=== PATIENT | male | born 1970 | race American Indian/Alaskan Native ===

== ENCOUNTER 2020-02-03 08:17 | Day surgery (SDC) | payer OTHER, SELFPAY ==
[2020-01-27 15:29] VITALS: BMI 28.1
--- NOTE | 2020-02-01 15:08 | HO.ANESPROP2 ---
Documented by User: Priscilla Luke 02/01/20 15:08 HPI - Anesthesia Eval Consult details Narrative: 49yo M for Colonoscopy [facility] Past Medical History Medical History No significant past medical history Surgical History Surgical History No significant past surgical history Social History Social History Smoking Status: Unknown if ever smoked Use of substances other than those prescribed or required for medical reasons: No Advance Directives: No Advance Directives Information Provided: No Advance Directives on File: No Meds Allergies Allergy/AdvReac Type Severity Reaction Status Date / Time No Known Allergies Allergy Verified 01/27/20 15:28 Home Medications Medication Instructions Recorded Confirmed Type multivitamin 1 tab PO DAILY 01/27/20 01/27/20 History Exam Exam Date and Time: February 01, 2020 1508 Height,Weight and Vital Signs: Height 5 ft 5 in Weight 76.657 kg Assessment and Plan Assessment Anesthesia Assessment: Chart Reviewed Documented by User: Leah Meier 02/03/20 09:17 [facility] Past Medical History Medical History No significant past medical history Surgical History Surgical History No significant past surgical history Social History Social History Smoking Status: Unknown if ever smoked Use of substances other than those prescribed or required for medical reasons: No Advance Directives: No Advance Directives Information Provided: No Advance Directives on File: No Meds Allergies Allergy/AdvReac Type Severity Reaction Status Date / Time No Known Allergies Allergy Verified 01/27/20 15:28 Home Medications Medication Instructions Recorded Confirmed Type multivitamin 1 tab PO DAILY 01/27/20 01/27/20 History Exam Airway Mallampati Class: II TM Dist: >3cm Neck ROM: Full Heart: RRR Lungs: CTA Assessment and Plan Assessment Anesthesia Assessment: Anesthesia Plan Discussed and Chart Reviewed Final Anesthetic Review NPO: Yes ASA Class: I Final Preanesthetic Review: Meds/Allgs Chart Reviewed, Consent Obtained/Reviewed and Anes Risks/Benef Reviewed Patient Risk: Low Procedure Risk: Low Anesthetic Plan Anesthetic Plan: MAC: Disposition: Standard PACU
[2020-02-03 08:46] VITALS: BP 129/89; PULSE 88; RESP 16; TEMP 36.8; O2SAT 98
[2020-02-03] MEDS: Lactated Ringers 1,000 ML 100 ML IVCONT (08:55)
--- NOTE | 2020-02-03 09:16 | P.HPSUR_ITS ---
Pre-Procedural Eval Section B Chief Complaint: screening Details of Present Illness: screening Relevant Family History (Specify if Yes): No Relevant Social History: None Present Medications: None Medical History: No relevant PMH History of Previous Operations: No relevant previous surgery Allergies: Allergies Allergy/AdvReac Type Severity Reaction Status Date / Time No Known Allergies Allergy Verified 01/27/20 15:28 Review of Systems Sugical H&P ROS: Negative: Constitution, Cardiovascular, Respiratory, Neurological, Psychiatric, Hem-Onc, Allergic/Immunologic, Gastrointestinal, Genitourinary, Musculoskeletal, Integumentary, Endocrine and Eyes/Ears/Nose /Throat Exam Surgical H&P Exam: Normal: HEENT, Normal: Heart, Normal: Lungs, Normal: Extremities, Normal: Abdomen, Normal: Skin and Normal: Neurological Plan Diagnosis/Plan: Unchanged Patient has been examined and remains a candidate for the planned procedure
--- NOTE | 2020-02-03 09:36 | PM.OP ---
Brief Operative Note Date of Service: 02/03/20 Pre-op diagnosis: screening Post-op diagnosis: same (colon polyp) Procedure: colonoscopy Surgeon: Armando Baker Anesthesia: MAC Estimated blood loss (mL): 2 Pathology: other (polyp icv) Condition: stable Disposition: PACU
[2020-02-03 09:42] VITALS: BP 98/63; PULSE 93; RESP 16; TEMP 36.7; O2SAT 100
--- NOTE | 2020-02-03 09:55 | OP_ITS ---
SURGEON: Armando Baker MD INDICATIONS: Colon cancer screening. PREOPERATIVE DIAGNOSIS: POSTOPERATIVE DIAGNOSIS: PROCEDURE PERFORMED: ESTIMATED BLOOD LOSS: COMPLICATIONS: ANESTHESIA: Medications, monitored anesthesia care. ASSISTANTS: SPECIMENS: PROCEDURES PERFORMED: Colonoscopy to the terminal ileum with snare polypectomy and biopsy. DESCRIPTION OF PROCEDURE: The history and physical were performed. The risks and benefits of the procedure were explained to the patient. Informed consent was obtained. The patient was placed in the left lateral decubitus position. A digital rectal exam was performed and was found to be normal. The Olympus pediatric video colonoscope was introduced into the rectum and advanced to the cecum without difficulty. The cecum was identified by transillumination, palpation, and identification of the ileocecal valve. Examination was performed. The scope was removed. He tolerated the procedure well and was returned to recovery area in stable condition. FINDINGS: The terminal ileum was normal. The visualized colonic mucosa was normal. The quality of the prep was good. At the ileocecal valve, was a 6-mm polyp which was removed with a combination of snare and biopsy forceps. No other polyps were identified. Retroflexed examination showed moderate-sized internal hemorrhoids. IMPRESSION: Colon polyp. RECOMMENDATION: Followup the biopsy results. MD DASHAWN Rojas/KATINA / [id number]
[2020-02-03 09:57] VITALS: BP 111/85; PULSE 88; RESP 16; O2SAT 99
--- NOTE | 2020-02-03 10:26 | HO.POSTANES ---
Post Anesthesia Evaluation Post Anesthesia Evaluation Vital Signs: Vital Signs Temp Pulse Resp BP Pulse Ox 02/03/20 09:57 88 16 111/85 99 02/03/20 09:42 98.0 F 93 16 98/63 100 02/03/20 08:46 98.2 F 88 16 129/89 98 Anesthesia: Monitored Mental Status: Awake Pain Control: Satisfactory Nausea/Vomiting: None Hydration: Adequate Anesthesia-Related Issues: No Anes. Related Issues
== END 2020-02-03 10:50 | disposition home or self-care (01) ==
PROVIDERS: PCP Internal Medicine; Visit Provider Internal Medicine Gastroenterology
PROC: 0DJD8ZZ Inspection of Lower Intestinal Tract, Via Natural or Artificial Opening Endoscopic (ICD-10-PCS; CPT 45378; principal; 2020-02-03 09:40)
DX: Z12.11 Encounter for screening for malignant neoplasm of colon (principal); D12.0 Benign neoplasm of cecum; K64.8 Other hemorrhoids
CPT/HCPCS: 45385; 45380; 88305

== ENCOUNTER 2020-11-09 08:16 | Outpatient (REF) | payer OTHER, SELFPAY ==
[2020-11-09 08:42] LABS: MANUAL DIFF FLAG NO
[2020-11-09 09:12] LABS: Basophils Percent Auto 0.5 % (0-2); Eosinophils Absolute Auto 0.2 X10*3/uL (0.0-0.4); Eosinophils Percent Auto 3.6 % (0-4); Hematocrit 45.9 % (42-52); Hemoglobin 15.2 g/dl (14.0-18.0); Imm Gran Abs Auto 0.03 X10*3/uL (0.00-0.03); Imm Gran Pct Auto 0.5 % (0.0-0.4); Lymphocytes Absolute Auto 1.7 X10*3/uL (1.2-4.9); Lymphocytes Percent Auto 28.4 % (20-40); Mean Corpuscular HGB Conc 33.1 g/dl (31.0-36.0); Mean Corpuscular Hemoglobin 27.1 pg (27.0-33.0); Mean Platelet Volume 10.9 fL (9.4-12.4); Monocytes Absolute Auto 0.4 X10*3/uL (0.1-1.2); Monocytes Percent Auto 6.3 % (2-11); Neutrophils Absolute Auto 3.6 X10*3/uL (2.0-8.3); Neutrophils Percent Auto 60.7 % (45-73); Platelet Count 175 X10*3/uL (160-400); Red Cell Distribution Width 13.2 % (11.0-16.0); White Blood Count 5.9 X10*3/uL (4.8-10.8)
[2020-11-09 09:21] LABS: Glucose Urine UA NEG (NEG); Leukocyte Esterase Urine NEG (NEG); Nitrite Urine NEG (NEG); Urine Blood NEG (NEG); Urine Ketones NEG (NEG); Urine Protein NEG (NEG-TRACE)
[2020-11-09 09:29] LABS: Alanine Aminotransferase 30 U/L (0-40); Albumin Level 4.2 g/dL (3.5-5.0); Alkaline Phosphatase 53 U/L (39-117); Anion Gap 13 (12-20); Aspartate Amino Transferase 18 U/L (5-37); Bilirubin Total 1.4 mg/dL (0.0-1.0); Blood Urea Nitrogen 10 mg/dL (9-16); Calcium 8.9 mg/dL (8.4-10.2); Carbon Dioxide 24 mmol/L (22-29); Chloride 104 mmol/L (96-108); Cholesterol 176 mg/dL; Estimated Glomerular Filt Rate > 60; Glucose Fasting 95 mg/dL (60-99); HDL Cholesterol 35 mg/dL; LDL Cholesterol Calculated 118 mg/dl; Sodium 137 mmol/L (135-145); Total Protein 6.8 g/dL (6.5-8.0); Triglycerides 116 mg/dL
[2020-11-09 09:36] LABS: Appearance Urine CLEAR; Color Urine YELLOW
[2020-11-09 09:59] LABS: Vitamin D 25-OH Total 30.5 ng/mL (>30)
[2020-11-09 10:06] LABS: Prostate Specific Antigen 0.78 ng/mL (<0.05-4.0)
== END 2020-11-09 08:17 | disposition home or self-care (01) ==
LOC: HO.LAB 08:16
PROVIDERS: PCP Internal Medicine; Visit Provider Internal Medicine
DX: Z00.00 Encounter for general adult medical examination without abnormal findings (principal); E78.9 Disorder of lipoprotein metabolism, unspecified; Z12.5 Encounter for screening for malignant neoplasm of prostate
CPT/HCPCS: 36415; 80053; 80061; 81003; 82306; 84153; 85025

== ENCOUNTER 2020-11-19 15:35 | Outpatient (REF) | payer OTHER, SELFPAY ==
--- NOTE | ~2020-11-19 | XR_ITS ---
EXAMINATION: XR KNEE, LEFT CLINICAL INFORMATION: Left knee pain. COMPARISON: None. TECHNIQUE: AP, tunnel, lateral, and sunrise views of the left knee. FINDINGS: There is no fracture, malalignment, or joint effusion. There are tiny marginal osteophytes involving the patellofemoral joint. There is no apparent joint space narrowing. XR/XR knee LT 4V IMPRESSION: Minor osteoarthritis of the patellofemoral joint. Otherwise, unremarkable radiographs.
== END 2020-11-19 15:36 | disposition home or self-care (01) ==
LOC: HO.XRAY 15:35
PROVIDERS: PCP Internal Medicine; Visit Provider Internal Medicine
DX: M25.562 Pain in left knee (principal)
CPT/HCPCS: 73564

== ENCOUNTER 2021-08-01 15:00 | Outpatient (REF) | payer OTHER, SELFPAY ==
[2021-08-01 15:44] LABS: Influenza A PCR POSITIVE (Negative); Influenza B PCR NEGATIVE (Negative); Resp Syncy Virus RNA Qual PCR NEGATIVE (Negative); SARS COV2 PCR INHOUSE POSITIVE (Negative)
== END 2021-08-01 15:01 | disposition home or self-care (01) ==
LOC: HO.LNP 15:00
PROVIDERS: Visit Provider Internal Medicine
DX: R50.9 Fever, unspecified (principal); R05.9 Cough, unspecified; Z20.822 Contact with and (suspected) exposure to COVID-19
CPT/HCPCS: 0241U

== ENCOUNTER 2022-07-08 18:25 | Emergency (ER) | payer OTHER, SELFPAY ==
--- NOTE | ~2022-07-08 | CT_ITS ---
EXAMINATION: CT ABDOMEN AND PELVIS WITH CONTRAST CLINICAL INFORMATION: Left lower quadrant pain COMPARISON: None available. TECHNIQUE: Multidetector volumetric images were obtained from the superior aspect of the liver through the pubic symphysis following administration 85 mL of Omnipaque 350 intravenous contrast. Sagittal and coronal reformatted images were obtained on the technologist's workstation. Oral contrast: Yes This CT examination was performed using dose optimization techniques as appropriate, variously including the following: *Automated exposure control *Adjustment of mA and/or kV according to patient size (this includes techniques or standardized protocols for targeted exams where dose is matched to indication/reason for exam; i.e. extremities or head) *Use of iterative reconstruction technique DLP: 470 mGy-cm FINDINGS: LUNG BASES: The visualized lung bases are unremarkable. LIVER, GALLBLADDER, AND BILIARY TREE: The liver is normal in size, shape, and attenuation. No focal hepatic lesion or biliary ductal dilatation is present. The gallbladder is unremarkable with no evidence of radiopaque gallstones, gallbladder wall thickening, or obvious pericholecystic inflammatory changes. PANCREAS: Unremarkable. SPLEEN: Unremarkable. ADRENAL GLANDS: Unremarkable. KIDNEYS AND URETERS: The kidneys are normal in size, shape, and attenuation. No hydronephrosis, hydroureter, or calculi seen. No perinephric stranding. 1 cm cyst in the upper pole the left kidney. No imaging follow-up recommended. BLADDER: Unremarkable. GASTROINTESTINAL TRACT: There is diverticulosis of the colon. There is a short segment of marked wall thickening of the distal left colon and stranding of the surrounding fat. There is a small amount of adjacent fluid. Findings are suggestive of diverticulitis or colitis. No evidence of perforation, obstruction or abscess. Question 1.3 x 1.6 cm duodenal lipoma. Small and large bowel is otherwise unremarkable. The appendix is unremarkable. ABDOMINAL WALL: No significant hernia is appreciated. LYMPH NODES: Normal. VASCULAR: Unremarkable. PELVIC VISCERA: Unremarkable. OSSEOUS STRUCTURES: Unremarkable. CT/CT abdomen pelvis w IV con IMPRESSION: Left colon diverticulitis or colitis. Fleischner guidelines were followed.
[2022-07-08 18:33] VITALS: BP 153/92; PULSE 94; RESP 18; TEMP 37.6; O2SAT 99; BMI 29.6
--- NOTE | 2022-07-08 18:33 | ED_ITS ---
HPI - Abdominal Pain General Chief Complaint: Abdominal Pain <TACHO Sun - Last Filed: 07/08/22 18:36> Stated Complaint: gastro, abd. pain <TACHO Sun - Last Filed: 07/08/22 18:36> Time Seen by Provider: 07/08/22 21:26 <TACHO Sun - Last Filed: 07/08/22 18:36> Source: patient, RN notes reviewed and old records reviewed <Jovani Malone - Last Filed: 07/08/22 22:36> Mode of arrival: ambulatory <Jovani Malone - Last Filed: 07/08/22 22:36> Limitations: no limitations <Jovani Malone - Last Filed: 07/08/22 22:36> History of Present Illness HPI narrative: 51-year-old male who denies any past medical history presents for evalua tion of abdominal pain. Patient reports mild abdominal discomfort going back about 2 weeks. Over the last few days he has had localized left lower abdominal pain that has been more severe. He reports some chills over the last 3 days. Denies any documented fevers He states that his stools have been a little bit loose but not quite diarrhea. He has not seen any blood in the stool He has not been out of the country in the last 3 months but reports he was in [place] in February Patient denies any history abdominal surgeries His pain is at worst 9/10 and stabbing He had some improvement with Advil and Pepto-Bismol <Jovani Malone - Last Filed: 07/08/22 22:36> Related Data Home Medications: Home Medications Medication Instructions Recorded Confirmed multivitamin 1 tab PO DAILY 01/27/20 01/27/20 Previous Rx's Medication Instructions Recorded amoxicillin 875 mg-potassium 1 tab PO TID #21 tabs 07/08/22 clavulanate 125 mg tablet <TACHO Sun Last Filed: 07/08/22 18:36> Allergies/Adverse Reactions: Allergies Allergy/AdvReac Type Severity Reaction Status Date / Time No Known Allergies Allergy Verified 07/08/22 18:33 <TACHO Sun Last Filed: 07/08/22 18:36> Review of Systems Constitutional: Reports as per HPI, Reports chills, Denies fatigue, Denies fever(s) and Denies headache(s) <Jovani Malone - Last Filed: 07/08/22 22:36> Denies headache(s) <Jovani Martinesy - Last Filed: 07/08/22 22:36> Cardiovascular: Denies chest pain and Denies dyspnea <Jovani OMaywood - Last Filed: 07/08/22 22:36> Respiratory: Denies cough and Denies dyspnea <Jovanikendal Martinesy - Last Filed: 07/08/22 22:36> Gastrointestinal: Reports abdominal pain, Denies hematochezia, Denies constipation and Denies vomiting <Jovani O'Kevin - Last Filed: 07/08/22 22:36> Genitourinary: Denies difficulty urinating and Denies dysuria <Jovani Martinesy - Last Filed: 07/08/22 22:36> Denies headache(s) and Denies focal weakness <Jovani Malone - Last Filed: 07/08/22 22:36> Endocrine: Denies fatigue <Jovani Malone Last Filed: 07/08/22 22:36> PMFSH Past Medical History Medical History: Medical History No significant past medical history <TACHO Sun - Last Filed: 07/08/22 18:36> Surgical History: Surgical History No significant past surgical history <TACHO Sun - Last Filed: 07/08/22 18:36> Social History Social History: Social History Advance Directives: No Advance Directives Information Provided: No <TACHO Sun - Last Filed: 07/08/22 18:36> Physical Exam ED Vital Signs: Vital Signs - 24 hr 07/08/22 18:33 Temperature 99.7 F Pulse Rate 94 Respiratory Rate 18 Blood Pressure 153/92 H Pulse Oximetry 99 Oxygen Delivery Method Room Air BMI result Body Mass Index 29.6 <TACHO Sun - Last Filed: 07/08/22 18:36> Vital Signs - 24 hr 07/08/22 18:33 Temperature 99.7 F Pulse Rate 94 Respiratory Rate 18 Blood Pressure 153/92 H Pulse Oximetry 99 Oxygen Delivery Method Room Air BMI result Body Mass Index 29.6 <Jovani Malone - Last Filed: 07/08/22 22:36> Const General: healthy appearing, comfortable, no acute distress, alert and awake <Jovani Martinesy - Last Filed: 07/08/22 22:36> Nutritional Appearance: well nourished <Jovani RiceMaywood - Last Filed: 07/08/22 22:36> Orientation/consciousness: patient oriented x3 <Jovani Martinesy - Last Filed: 07/08/22 22:36> HENMT Head: Yes normocephalic and Yes atraumatic <Jovani RiceMaywood - Last Filed: 07/08/22 22:36> Throat: Yes posterior oropharynx normal <Jovani RiceKevin - Last Filed: 07/08/22 22:36> Eyes Eyelids: Yes eyelids normal <Jovani RiceEkvin - Last Filed: 07/08/22 22:36> Conjunctivae: conjunctivae normal <Jovani RiceMaywood - Last Filed: 07/08/22 22:36> Sclerae: sclerae normal <Jovani RiceKevin - Last Filed: 07/08/22 22:36> Corneas: corneas normal <Jovani RiceKevin - Last Filed: 07/08/22 22:36> Pupils: Equal, round and reactive pupils present <Jovani Martinesy - Last Filed: 07/08/22 22:36> EOM: EOMs intact bilaterally <Jovani Martines Last Filed: 07/08/22 22:36> Neck Neck: Yes full ROM <Jovani Martinesy - Last Filed: 07/08/22 22:36> Resp Effort & Inspection: normal respiratory effort, able to speak in complete sentences, no audible wheezes and not labored <Jovani Martinesy - Last Filed: 07/08/22 22:36> Auscultation: clear to auscultation bilaterally <Jovani Malone - Last Filed: 07/08/22 22:36> Cardio Rate: regular rate <Jovanikendal Martines Last Filed: 07/08/22 22:36> Rhythm: regular rhythm <Jovanikendal Martinesy - Last Filed: 07/08/22 22:36> GI Palpation (GI): Soft to palpation, not firm, Tenderness to palpation present (GI) in the LLQ and Guarding due to palpation present (GI) (No rebound) in the LLQ <Jovanikendal Malone - Last Filed: 07/08/22 22:36> Auscultation: normoactive bowel sounds <Jovanikendal Martinesy - Last Filed: 07/08/22 22:36> Skin General skin exam: no rashes or lesions noted and elasticity normal <Jovani OKevin - Last Filed: 07/08/22 22:36> Neuro General: patient oriented x3 <Jovanikendal Martinesy - Last Filed: 07/08/22 22:36> Cranial nerves: Yes CN's II-XII intact bilaterally, Yes Equal, round and reactive pupils present and Yes Bilaterally intact EOM present <Jovanikendal Malone - Last Filed: 07/08/22 22:36> Cognition (Neuro): normal cognition <Jovani Malone Last Filed: 07/08/22 22:36> Extrem Other: Moving all extremities well without any obvious deformities <Jovani Malone - Last Filed: 07/08/22 22:36> Course Course Course Narrative: This is an RME: Additional HPI, ROS, PE not included below will be deferred to primary provider. 51 year old male w/o significant medical hx presents w/ LLQ pain (stabbing, constant, severe 9/10) X15 days also complaining of soft stool and more frequent BM. No hematochezia or melena. Colonoscopy 3 years ago w/ a benign polyp. No hx of diverticulits or kidney stones. PE LLQ tenderness Plan- labs, ua, ct abd and pelvis <TACHO Sun - Last Filed: 07/08/22 18:36> Reevaluation(s) Reevaluation #1: Patient's CT scan shows left colon diverticulitis which is consistent with the patient's clinical presentation. Will treat with Augmentin t.i.d. x7 days <Jovani Malone - Last Filed: 07/08/22 22:36> Time: 22:34 <Jovani Malone - Last Filed: 07/08/22 22:36> Medical Decision Making Medical Decision Making MDM Narrative: Patient has had mild abdominal discomfort that has been progressively worsening over the last few days. He has left lower quadrant point tenderness with guarding. His abdomen remains soft, nondistended and there is no rebound tenderness. Given the diarrhea as well as left lower quadrant abdominal pain, I feel the most likely diagnosis is diverticulitis. A CT scan with IV contrast is pending. The patient's labs are reassuring as is a urine sample. Less likely P obstructive uropathy. The patient does not have any risk factors for C diff <Jovani Malone - Last Filed: 07/08/22 22:36> Differential Diagnosis Diverticulitis Colitis Diverticular perforation Diverticular abscess Constipation Obstructive uropathy <Jovani Malone - Last Filed: 07/08/22 22:36> Lab Data Result Diagrams: 07/08/22 19:15 07/08/22 19:15 <TACHO Sun - Last Filed: 07/08/22 18:36> Labs: Lab Results 07/08/22 07/08/22 07/08/22 Range/Units 19:14 19:15 19:15 WBC 9.6 (4.8-10.8) X10*3/uL RBC 5.56 (4.60-5.80) X10*6/uL Hgb 15.5 (14.0-18.0) g/dl Hct 46.9 (42.0-52.0) % MCV 84.4 (80.0-98.0) fL MCH 27.9 (27.0-33.0) pg MCHC 33.0 (31.0-36.0) g/dl RDW 13.4 (11.0-16.0) % Plt Count 166 (160-400) X10*3/uL MPV 11.3 (9.4-12.4) fL Immature Gran % (Auto) 0.2 (0.0-0.4) % Neut % (Auto) 75.1 H (45-73) % Lymph % (Auto) 15.3 L (20-40) % [place] % (Auto) 6.7 (2-11) % Eos % (Auto) 2.2 (0-4) % Baso % (Auto) 0.5 (0-2) % Lymph # (Auto) 1.5 (1.2-4.9) X10*3/uL [place] # (Auto) 0.6 (0.1-1.2) X10*3/uL Eos # (Auto) 0.2 (0.0-0.4) X10*3/uL Baso # (Auto) 0.1 (0.0-0.2) X10*3/uL Abs Immat Gran (auto) 0.02 (0.00-0.03) X10*3/uL Absolute Neuts (auto) 7.2 (2.0-8.3) x10*3/uL Absolute Nucleated RBC 0.000 (0.0-0.012) X10*3/uL Nucleated RBC % (auto) 0.0 (0.0-0.2) /100WBC Sodium 139 (135-145) mmol/L Potassium 4.3 (3.3-5.1) mmol/L Chloride 104 (96-108) mmol/L Carbon Dioxide 26 (22-29) mmol/L Anion Gap 13 (12-20) BUN 16 (9-16) mg/dL Creatinine 1.15 (0.5-1.4) mg/dL Estim Creat Clear Calc 70.2 Estimated GFR > 60 Random Glucose 92 (60-115) mg/dL Calcium 8.7 (8.4-10.2) mg/dL Magnesium 2.1 (1.6-2.6) mg/dL Total Bilirubin 1.4 H (0.0-1.0) mg/dL AST 31 (5-37) U/L ALT 53 H (0-40) U/L Alkaline Phosphatase 72 (39-117) U/L Total Protein 6.7 (6.5-8.0) g/dL Albumin 4.1 (3.5-5.0) g/dL Lipase 30 (8-78) U/L Urine Color Yellow Urine Appearance Clear Urine pH 7.0 (5.0-9.0) Ur Specific [place] 1.025 (1.005-1.025) Urine Protein Negative (Neg-Trace) mg/dL Urine Glucose (UA) Negative (Negative) mg/dL Urine Ketones Negative (Negative) mg/dL Urine Blood Small (1+) H (Negative) Urine Nitrite Negative (Negative) Ur Leukocyte Esterase Negative (Negative) Urine RBC 6-10 H (0-2) /HPF Urine WBC 0-5 (0-5) /HPF Ur Squamous Epith Cells 0-2 (0-2) /HPF Urine Bacteria None Seen (None Seen) Hyaline Casts 0-2 (0-2) /LPF <TACHO uSn - Last Filed: 07/08/22 18:36> Lab Results 07/08/22 07/08/22 07/08/22 Range/Units 19:14 19:15 19:15 WBC 9.6 (4.8-10.8) X10*3/uL RBC 5.56 (4.60-5.80) X10*6/uL Hgb 15.5 (14.0-18.0) g/dl Hct 46.9 (42.0-52.0) % MCV 84.4 (80.0-98.0) fL MCH 27.9 (27.0-33.0) pg MCHC 33.0 (31.0-36.0) g/dl RDW 13.4 (11.0-16.0) % Plt Count 166 (160-400) X10*3/uL MPV 11.3 (9.4-12.4) fL Immature Gran % (Auto) 0.2 (0.0-0.4) % Neut % (Auto) 75.1 H (45-73) % Lymph % (Auto) 15.3 L (20-40) % [place] % (Auto) 6.7 (2-11) % Eos % (Auto) 2.2 (0-4) % Baso % (Auto) 0.5 (0-2) % Lymph # (Auto) 1.5 (1.2-4.9) X10*3/uL [place] # (Auto) 0.6 (0.1-1.2) X10*3/uL Eos # (Auto) 0.2 (0.0-0.4) X10*3/uL Baso # (Auto) 0.1 (0.0-0.2) X10*3/uL Abs Immat Gran (auto) 0.02 (0.00-0.03) X10*3/uL Absolute Neuts (auto) 7.2 (2.0-8.3) x10*3/uL Absolute Nucleated RBC 0.000 (0.0-0.012) X10*3/uL Nucleated RBC % (auto) 0.0 (0.0-0.2) /100WBC Sodium 139 (135-145) mmol/L Potassium 4.3 (3.3-5.1) mmol/L Chloride 104 (96-108) mmol/L Carbon Dioxide 26 (22-29) mmol/L Anion Gap 13 (12-20) BUN 16 (9-16) mg/dL Creatinine 1.15 (0.5-1.4) mg/dL Estim Creat Clear Calc 70.2 Estimated GFR > 60 Random Glucose 92 (60-115) mg/dL Calcium 8.7 (8.4-10.2) mg/dL Magnesium 2.1 (1.6-2.6) mg/dL Total Bilirubin 1.4 H (0.0-1.0) mg/dL AST 31 (5-37) U/L ALT 53 H (0-40) U/L Alkaline Phosphatase 72 (39-117) U/L Total Protein 6.7 (6.5-8.0) g/dL Albumin 4.1 (3.5-5.0) g/dL Lipase 30 (8-78) U/L Urine Color Yellow Urine Appearance Clear Urine pH 7.0 (5.0-9.0) Ur Specific [place] 1.025 (1.005-1.025) Urine Protein Negative (Neg-Trace) mg/dL Urine Glucose (UA) Negative (Negative) mg/dL Urine Ketones Negative (Negative) mg/dL Urine Blood Small (1+) H (Negative) Urine Nitrite Negative (Negative) Ur Leukocyte Esterase Negative (Negative) Urine RBC 6-10 H (0-2) /HPF Urine WBC 0-5 (0-5) /HPF Ur Squamous Epith Cells 0-2 (0-2) /HPF Urine Bacteria None Seen (None Seen) Hyaline Casts 0-2 (0-2) /LPF <Jovani Malone - Last Filed: 07/08/22 22:36> Independent Interpretation I performed an independent interpretation of an: CT Scan (Diverticulitis in the left lower abdomen) <Jovani Malone - Last Filed: 07/08/22 22:36> Radiology Impression Discussion of test interpretation with radiology: I have reviewed the radiologist's reading. <Jovani Malone - Last Filed: 07/08/22 22:36> Medications Administered Discontinued Medications Generic Name Dose Route Start Last Admin Trade Name Freq PRN Reason Stop Dose Admin Iohexol 100 ml 07/08/22 21:47 07/08/22 21:47 Iohexol 350 Mg/Ml 100 Ml Infus..Btl IV 07/08/22 21:48 85 ml ONCE ONE Administration Ketorolac Tromethamine 30 mg 07/08/22 21:35 07/08/22 21:52 Ketorolac Tromethamine 30 Mg/Ml Vial IVPUSH 07/08/22 21:36 30 mg ONCE ONE Administration <TACHO Sun - Last Filed: 07/08/22 18:36> Medications Administered Discontinued Medications Generic Name Dose Route Start Last Admin Trade Name Freq PRN Reason Stop Dose Admin Iohexol 100 ml 07/08/22 21:47 07/08/22 21:47 Iohexol 350 Mg/Ml 100 Ml Infus..Btl IV 07/08/22 21:48 85 ml ONCE ONE Administration Ketorolac Tromethamine 30 mg 07/08/22 21:35 07/08/22 21:52 Ketorolac Tromethamine 30 Mg/Ml Vial IVPUSH 07/08/22 21:36 30 mg ONCE ONE Administration <Jovani Malone - Last Filed: 07/08/22 22:36> Discharge Plan Discharge Clinical Impression: Diverticulitis <TACHO Sun Last Filed: 07/08/22 18:36> Patient Disposition: Home, Self-Care <TACHO Sun Last Filed: 07/08/22 18:36> Instructions: Diverticulitis (ED) <TACHO Sun Last Filed: 07/08/22 18:36> Additional Instructions: Take the Augmentin 3 times daily for 7 days to treat diverticulitis. A liquid diet for 1-2 days may help her symptoms Use ibuprofen or Tylenol for pain Follow-up with your primary doctor <TACHO Sun - Last Filed: 07/08/22 18:36> Prescriptions: New amoxicillin-pot clavulanate 875-125 mg tablet 1 tab PO TID Qty: 21 0RF No Action multivitamin Tablet 1 tab PO DAILY <TACHO Sun - Last Filed: 07/08/22 18:36>
[2022-07-08 19:29] LABS: MANUAL DIFF FLAG NO
[2022-07-08 19:34] LABS: Appearance Urine Clear; Color Urine Yellow; Glucose Urine UA Negative (Negative); Leukocyte Esterase Urine Negative (Negative); Nitrite Urine Negative (Negative); Specific Gravity - Urine 1.025 (1.005-1.025); UMIC TRIGGER UACC YES; Urine Blood Small (1+) (Negative); Urine Ketones Negative (Negative); Urine Protein Negative (Neg-Trace)
[2022-07-08 19:39] LABS: Bacteria Urine None Seen (None Seen); Hyaline Casts Urine 0-2 /LPF (0-2); Squamous Epithelial Cell Urine 0-2 /HPF (0-2); WBC Urine 0-5 /HPF (0-5)
[2022-07-08 19:41] LABS: Basophils Absolute Auto 0.1 X10*3/uL (0.0-0.2); Basophils Percent Auto 0.5 % (0-2); Eosinophils Absolute Auto 0.2 X10*3/uL (0.0-0.4); Eosinophils Percent Auto 2.2 % (0-4); Hematocrit 46.9 % (42.0-52.0); Hemoglobin 15.5 g/dl (14.0-18.0); Imm Gran Abs Auto 0.02 X10*3/uL (0.00-0.03); Imm Gran Pct Auto 0.2 % (0.0-0.4); Lymphocytes Absolute Auto 1.5 X10*3/uL (1.2-4.9); Lymphocytes Percent Auto 15.3 % (20-40); Mean Corpuscular Hemoglobin 27.9 pg (27.0-33.0); Mean Corpuscular Volume 84.4 fL (80.0-98.0); Mean Platelet Volume 11.3 fL (9.4-12.4); Monocytes Absolute Auto 0.6 X10*3/uL (0.1-1.2); Monocytes Percent Auto 6.7 % (2-11); Neutrophils Absolute Auto 7.2 x10*3/uL (2.0-8.3); Neutrophils Percent Auto 75.1 % (45-73); Platelet Count 166 X10*3/uL (160-400); Red Blood Count 5.56 X10*6/uL (4.60-5.80); Red Cell Distribution Width 13.4 % (11.0-16.0); White Blood Count 9.6 X10*3/uL (4.8-10.8)
[2022-07-08 19:51] LABS: Alanine Aminotransferase 53 U/L (0-40); Albumin Level 4.1 g/dL (3.5-5.0); Alkaline Phosphatase 72 U/L (39-117); Anion Gap 13 (12-20); Aspartate Amino Transferase 31 U/L (5-37); Bilirubin Total 1.4 mg/dL (0.0-1.0); Blood Urea Nitrogen 16 mg/dL (9-16); Calcium 8.7 mg/dL (8.4-10.2); Carbon Dioxide 26 mmol/L (22-29); Chloride 104 mmol/L (96-108); Creatinine Clr Calc Pharmacy 70.2; Estimated Glomerular Filt Rate > 60; Glucose Random 92 mg/dL (60-115); Lipase 30 U/L (8-78); Magnesium 2.1 mg/dL (1.6-2.6); Potassium 4.3 mmol/L (3.3-5.1); Sodium 139 mmol/L (135-145); Total Protein 6.7 g/dL (6.5-8.0)
--- NOTE | 2022-07-08 21:43 | PC.NURSE ---
20G IV placed in left ac- pt currently in CT
[2022-07-08] MEDS: iohexoL 350 MG/ML 100 ML INFUS..BTL IV (21:47)
[2022-07-08] MEDS: Ketorolac Tromethamine 30 MG/ML VIAL IVPUSH (21:52)
--- NOTE | 2022-07-08 21:55 | PC.NURSE ---
pt medicated per provider order for 8/10 LLQ pain, pt pending CT results.
== END 2022-07-08 22:54 | disposition home or self-care (01) ==
PROVIDERS: Physician Assistant; Emergency Provider Emergency Medicine; PCP Internal Medicine
DX: K57.92 Diverticulitis of intestine, part unspecified, without perforation or abscess without bleeding (principal); R10.9 Unspecified abdominal pain
CPT/HCPCS: 36415; 74177; 80053; 81001; 83690; 83735; 85025; 96374; 99283; 99284; J1885; Q9967

== ENCOUNTER 2022-07-25 08:09 | Outpatient (REF) | payer OTHER, SELFPAY ==
[2022-07-25 08:27] LABS: MANUAL DIFF FLAG NO
[2022-07-25 09:16] LABS: Basophils Absolute Auto 0.1 X10*3/uL (0.0-0.2); Basophils Percent Auto 0.9 % (0-2); Eosinophils Absolute Auto 0.4 X10*3/uL (0.0-0.4); Eosinophils Percent Auto 5.3 % (0-4); Hematocrit 48.4 % (42.0-52.0); Hemoglobin 15.9 g/dl (14.0-18.0); Imm Gran Abs Auto 0.02 X10*3/uL (0.00-0.03); Imm Gran Pct Auto 0.3 % (0.0-0.4); Lymphocytes Absolute Auto 1.6 X10*3/uL (1.2-4.9); Lymphocytes Percent Auto 22.7 % (20-40); Mean Corpuscular HGB Conc 32.9 g/dl (31.0-36.0); Mean Corpuscular Hemoglobin 27.6 pg (27.0-33.0); Mean Platelet Volume 11.5 fL (9.4-12.4); Monocytes Absolute Auto 0.4 X10*3/uL (0.1-1.2); Monocytes Percent Auto 5.6 % (2-11); Neutrophils Absolute Auto 4.5 x10*3/uL (2.0-8.3); Neutrophils Percent Auto 65.2 % (45-73); Platelet Count 190 X10*3/uL (160-400); Red Blood Count 5.76 X10*6/uL (4.60-5.80); Red Cell Distribution Width 13.2 % (11.0-16.0); White Blood Count 6.8 X10*3/uL (4.8-10.8)
[2022-07-25 10:02] LABS: Alanine Aminotransferase 42 U/L (0-40); Albumin Level 4.1 g/dL (3.5-5.0); Alkaline Phosphatase 56 U/L (39-117); Anion Gap 12 (12-20); Aspartate Amino Transferase 24 U/L (5-37); Bilirubin Total 1.6 mg/dL (0.0-1.0); Blood Urea Nitrogen 9 mg/dL (9-16); Calcium 9.2 mg/dL (8.4-10.2); Carbon Dioxide 26 mmol/L (22-29); Chloride 104 mmol/L (96-108); Cholesterol 176 mg/dL; Estimated Glomerular Filt Rate > 60; Glucose Fasting 89 mg/dL (60-99); HDL Cholesterol 39 mg/dL; LDL Cholesterol Calculated 116 mg/dl; Potassium 4.2 mmol/L (3.3-5.1); Sodium 138 mmol/L (135-145); Total Protein 6.7 g/dL (6.5-8.0); Triglycerides 107 mg/dL
[2022-07-25 10:07] LABS: Prostate Specific Antigen 1.03 ng/mL (<0.05-4.0)
== END 2022-07-25 08:10 | disposition home or self-care (01) ==
LOC: HO.LAB 08:09
PROVIDERS: PCP Internal Medicine; Visit Provider Internal Medicine
DX: Z00.00 Encounter for general adult medical examination without abnormal findings (principal); J30.1 Allergic rhinitis due to pollen; R35.1 Nocturia; K57.90 Diverticulosis of intestine, part unspecified, without perforation or abscess without bleeding; Z20.2 Contact with and (suspected) exposure to infections with a predominantly sexual mode of transmission; Z12.5 Encounter for screening for malignant neoplasm of prostate
CPT/HCPCS: 36415; 80053; 80061; 82306; 84153; 85025

== ENCOUNTER 2022-07-29 12:03 | Outpatient (REF) | payer OTHER, SELFPAY ==
[2022-07-29 14:22] LABS: C Reactive Protein 0.12 mg/dL (< or = 0.50)
[2022-07-29 14:46] LABS: Vitamin B12 436 pg/mL (200-900)
[2022-08-05 16:03] LABS: Testosterone, Free 58.6 pg/mL (35.0-155.0); Testosterone, Total 339 ng/dL (250-1100)
== END 2022-07-29 12:04 | disposition home or self-care (01) ==
LOC: HO.10HDL 12:03
PROVIDERS: Visit Provider Internal Medicine
DX: R53.83 Other fatigue (principal); L65.9 Nonscarring hair loss, unspecified; K57.92 Diverticulitis of intestine, part unspecified, without perforation or abscess without bleeding
CPT/HCPCS: 36415; 82607; 84402; 84403; 84443; 86140

== ENCOUNTER 2023-10-03 08:37 | Outpatient (REF) | payer OTHER, SELFPAY ==
[2023-10-03 08:58] LABS: MANUAL DIFF FLAG NO
[2023-10-03 09:41] LABS: Basophils Percent Auto 0.7 % (0-2); Eosinophils Absolute Auto 0.2 X10*3/uL (0.0-0.4); Eosinophils Percent Auto 3.6 % (0-4); Hematocrit 46.1 % (42.0-52.0); Hemoglobin 15.4 g/dl (14.0-18.0); Imm Gran Abs Auto 0.01 X10*3/uL (0.00-0.03); Imm Gran Pct Auto 0.2 % (0.0-0.4); Lymphocytes Absolute Auto 1.4 X10*3/uL (1.2-4.9); Lymphocytes Percent Auto 24.5 % (20-40); Mean Corpuscular HGB Conc 33.4 g/dl (31.0-36.0); Mean Corpuscular Hemoglobin 27.5 pg (27.0-33.0); Mean Corpuscular Volume 82.5 fL (80.0-98.0); Mean Platelet Volume 11.1 fL (9.4-12.4); Monocytes Absolute Auto 0.4 X10*3/uL (0.1-1.2); Monocytes Percent Auto 7.1 % (2-11); Neutrophils Absolute Auto 3.6 x10*3/uL (2.0-8.3); Neutrophils Percent Auto 63.9 % (45-73); Platelet Count 169 X10*3/uL (160-400); Red Blood Count 5.59 X10*6/uL (4.60-5.80); White Blood Count 5.6 X10*3/uL (4.8-10.8)
[2023-10-03 10:30] LABS: Alanine Aminotransferase 31 U/L (0-40); Alkaline Phosphatase 48 U/L (39-117); Anion Gap 11 (12-20); Aspartate Amino Transferase 17 U/L (5-37); Bilirubin Total 1.1 mg/dL (0.0-1.0); Blood Urea Nitrogen 11 mg/dL (9-16); Carbon Dioxide 25 mmol/L (22-29); Chloride 105 mmol/L (96-108); Estimated Glomerular Filt Rate > 60; Glucose Fasting 97 mg/dL (60-99); Potassium 3.8 mmol/L (3.3-5.1); Sodium 137 mmol/L (135-145); Total Protein 6.7 g/dL (6.5-8.0)
[2023-10-03 10:49] LABS: Appearance Urine Clear; Color Urine Yellow; Glucose Urine UA Negative (Negative); Leukocyte Esterase Urine Negative (Negative); Nitrite Urine Negative (Negative); PH 5.5 (5.0-9.0); Specific Gravity - Urine 1.015 (1.005-1.025); Urine Blood Negative (Negative); Urine Ketones Negative (Negative); Urine Protein Negative (Neg-Trace)
[2023-10-03 10:51] LABS: Prostate Specific Antigen 0.73 ng/mL (<0.05-4.0)
== END 2023-10-03 08:38 | disposition home or self-care (01) ==
LOC: HO.LAB 08:37
PROVIDERS: PCP Internal Medicine; Visit Provider Internal Medicine
DX: K57.30 Diverticulosis of large intestine without perforation or abscess without bleeding (principal); G47.30 Sleep apnea, unspecified; Z12.5 Encounter for screening for malignant neoplasm of prostate
CPT/HCPCS: 36415; 80053; 81003; 84153; 85025

== ENCOUNTER 2023-12-18 11:15 | Day surgery (SDC) | payer OTHER, SELFPAY ==
[2023-12-18] VITALS (7 sets, daily range): BP systolic 113–147; BP diastolic 64–99; PULSE 69–102; RESP 14–20; TEMP 36.1–36.4; O2SAT 96–99; BMI 28.7
[2023-12-18] MEDS: Lactated Ringers 1,000 ML 100 ML IVCONT (11:58)
--- NOTE | 2023-12-18 12:55 | HO.ANESPROP2 ---
Documented by User: Priscilla Luke NP 12/17/23 09:55 HPI - Anesthesia Eval Consult details Narrative: 53yo M for Upper Endoscopy [facility] Past Medical History Medical History (Updated 12/18/23 @ 12:56 by Vero Groves DO) No significant past medical history Surgical History Surgical History (Updated 12/18/23 @ 11:46 by Nisa Bridges RN) Hx of colonoscopy No significant past surgical history Social History Social History Patient Tobacco Use Status: Never used Tobacco Have you been hit, kicked, punched, or otherwise hurt by someone within the past year? If so, by whom?: No Are you DNR?: No Advance Directives: No Advance Directives Information Provided: Yes Meds Allergies Allergy/AdvReac Type Severity Reaction Status Date / Time No Known Allergies Allergy Verified 07/08/22 18:33 Home Medications ?Medication ?Instructions ?Recorded ?Confirmed ?Last Taken ?Type Prilosec OTC 12/18/23 12/18/23 Unknown History Exam Pertinent Lab Results Pertinent Lab Results: Laboratory Tests 10/03/23 08:56 WBC 5.6 Hgb 15.4 Hct 46.1 Plt Count 169 Sodium 137 Potassium 3.8 Chloride 105 Carbon Dioxide 25 BUN 11 Creatinine 1.06 Assessment and Plan Assessment Anesthesia Assessment: Chart Reviewed Documented by User: Vero Groves DO 12/18/23 12:58 HPI - Anesthesia Eval Consult details Narrative: 53yo M for Upper Endoscopy. AKHIL on CPAP. [facility] Past Medical History Medical History (Updated 12/18/23 @ 12:56 by Vero Groves DO) No significant past medical history Family History Family history of problems with anesthesia: No Surgical History Surgical History (Updated 12/18/23 @ 11:46 by Nisa Bridges RN) Hx of colonoscopy No significant past surgical history History of Problems with Anesthesia: No Social History Social History Patient Tobacco Use Status: Never used Tobacco Have you been hit, kicked, punched, or otherwise hurt by someone within the past year? If so, by whom?: No Are you DNR?: No Advance Directives: No Advance Directives Information Provided: Yes Meds Allergies Allergy/AdvReac Type Severity Reaction Status Date / Time No Known Allergies Allergy Verified 07/08/22 18:33 Home Medications ?Medication ?Instructions ?Recorded ?Confirmed ?Last Taken ?Type Prilosec OTC 12/18/23 12/18/23 Unknown History Exam Exam Date and Time: 12/18/23 1255 Height,Weight and Vital Signs: Height 5 ft 4 in Weight 75.841 kg Vital Signs Temperature 97.5 F 12/18/23 11:35 Pulse Rate 12/18/23 11:35 Respiratory Rate 12/18/23 11:35 Blood Pressure 147/90 H 12/18/23 11:35 Pulse Oximetry 97 12/18/23 11:35 Oxygen Delivery Method Room Air 12/18/23 11:35 Temperature 97.5 F 12/18/23 11:35 Pulse Rate 12/18/23 11:35 Respiratory Rate 12/18/23 11:35 Blood Pressure 147/90 H 12/18/23 11:35 Pulse Oximetry 97 12/18/23 11:35 Oxygen Delivery Method Room Air 12/18/23 11:35 Airway Mallampati Class: III TM Dist: >3cm Neck ROM: Full Loose/Missing/Broken Teeth: No (patient denies any loose or broken teeth) Heart: S1S2 Lungs: CTAB Assessment and Plan Assessment Anesthesia Assessment: Anesthesia Plan Discussed and Chart Reviewed Final Anesthetic Review Family History of Problems with Anesthesia: No History of Problems with Anesthesia: No NPO: Yes ASA Class: II Final Preanesthetic Review: No Changes in Pt Med Stat, Meds/Allgs Chart Reviewed, Consent Obtained/Reviewed and Anes Risks/Benef Reviewed Patient Risk: Low Procedure Risk: Low Anesthetic Plan Anesthetic Plan: MAC: and Agree w/ Assess. and Plan Disposition: Standard PACU
--- NOTE | 2023-12-18 13:28 | MHC.SHP ---
Pre-Procedural Eval Section A - 24 Hr Update-Section A only Date of Service: 12/18/23 The patient is an INPATIENT: No Changes since office visit: No Cold of Flu in the past 2 weeks, No New Medical Problems, No Changes in Medication and No Patient answered all questions The patient has been examined within 24 hours of the surgical procedure. The History & Physical has been completed within 30 days and I have reviewed it.: Yes Section B - Complete if H&P > 30 days Chief Complaint: Abnormal findings on diagnostic imaging Allergies: Allergies Allergy/AdvReac Type Severity Reaction Status Date / Time No Known Allergies Allergy Verified 07/08/22 18:33 Plan I have reviewed the history and physical and performed a pertinent physical examination on my patient. No changes have occurred unless specified. Time Spent With Patient Time: Total time managing care of this patient today ____ minutes.
--- NOTE | 2023-12-18 14:46 | OP_ITS ---
DATE OF SERVICE: 12/18/2023 SURGEON: Armando Baker MD INDICATIONS: Abnormal CT scan of the stomach. PREOPERATIVE DIAGNOSIS: POSTOPERATIVE DIAGNOSIS: PROCEDURE PERFORMED: Upper endoscopy with biopsy. ESTIMATED BLOOD LOSS: COMPLICATIONS: ANESTHESIA: The procedure was begun under monitored anesthesia care and converted to general endotracheal anesthesia. ASSISTANTS: SPECIMENS: DESCRIPTION OF PROCEDURE: The Olympus video gastroscope was introduced into the esophagus, stomach, and duodenum. Examination was performed and the scope was removed. He tolerated the procedure well and was returned to recovery area in stable condition. FINDINGS: Esophagus: The esophagus was normal. Biopsies were obtained from the EG junction, which was slightly irregular. Stomach: The stomach showed no evidence of masses, ulcers, or polyps. There were no mucosal lesions in the stomach. Biopsies were obtained from the antrum to evaluate for H pylori. Duodenum: In the 3rd portion of the duodenum, was a 2.5 cm growth consistent with a lipoma. The growth had normal overlying mucosa in a pillow sign on probing. Biopsies were obtained from the lipoma and fatty material was noted underneath the mucosa upon biopsying. Biopsies were also obtained from the 2nd portion of the duodenum. IMPRESSION: 1. Duodenal lipoma. 2. Otherwise normal upper endoscopy. RECOMMENDATION: Follow up the biopsy results. MD DASHAWN Rojas/KELSYL / [id number]
== END 2023-12-18 15:04 | disposition home or self-care (01) ==
PROVIDERS: PCP Internal Medicine; Visit Provider Internal Medicine Gastroenterology
PROC: 0DJ08ZZ Inspection of Upper Intestinal Tract, Via Natural or Artificial Opening Endoscopic (ICD-10-PCS; CPT 43235; principal; 2023-12-18 13:10)
DX: K29.60 Other gastritis without bleeding (principal); K22.89 Other specified disease of esophagus; K21.9 Gastro-esophageal reflux disease without esophagitis; I10 Essential (primary) hypertension; G47.33 Obstructive sleep apnea (adult) (pediatric); Z99.89 Dependence on other enabling machines and devices
CPT/HCPCS: 43239; 88305; 88313; 88342; J1100; J1596; J2250; J2704